=== PATIENT | male | born 1960 | race Caucasian/White ===

== ENCOUNTER 2019-07-30 14:45 | Outpatient (CLI) | payer OTHER, SELFPAY ==
--- NOTE | 2019-07-31 19:21 | WPDPFTINT ---
PFT Interpretation PFT Interpretation: DOS: 07/30/2019 REQUESTING: Dr. Álvaro Shahid REASON FOR TESTING: shortness of breath PULMONARY FUNCTION TESTS Results are reproducible. 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 Spirometry: FEV1 is 81%, normal. FVC mildly decreased 79%. Normal FEV1%. Mild decrease in AMH09-80% at 60% predicted with 20% increase after bronchodilator. Lung volumes: Mild decrease in TLC 79% consistent with mild restriction. Very low ERV 7% predicted may be consistent with obesity. Normal RV/TLC. Airway resistance is 181%, increased. Diffusion: DLCO is 77%, mildly decreased. Flow volume loop: Mild scooping of the expiratory limb. IMPRESSION: Mild restrictive process, mild small airways pattern with good response to bronchodilator, mild increase in airway resistance, and mild decrease in diffusion. The decrease in diffusion may be due to smoking. The BMI may contribute to mild restriction. Mily Rivers MD
== END 2019-07-30 14:46 | disposition home or self-care (01) ==
PROVIDERS: PCP Emergency Medicine; Visit Provider Internal Medicine Critical Care Medicine
DX: J44.9 Chronic obstructive pulmonary disease, unspecified (principal); R94.2 Abnormal results of pulmonary function studies
CPT/HCPCS: 94060; 94726; 94729

== ENCOUNTER 2019-08-22 14:47 | Outpatient (CLI) | payer OTHER, SELFPAY ==
--- NOTE | ~2019-08-22 | CT_ITS ---
EXAMINATION: CT lung screening DATE: 08/22/2019 15:12 INDICATION: Personal history of nicotine dependence, prior smoker with 45 pack year history TECHNIQUE: Computed tomography (CT) of the chest was performed without intravenous contrast. The dose -length product (DLP) was 356.33 mGy-cm. Automated exposure control and iterative reconstruction tech [employer] were employed. COMPARISON: None FINDINGS: There is mild emphysema. Calcified pulmonary nodules and calcified right hilar and mediasti nal lymph nodes are consistent with old granulomatous disease. No suspicious pulmonary nodules are id entified. There is a focally dilated bronchus in the left lower lobe which may reflect prior infectio n. No pleural effusion or pneumothorax is identified. No pathologically enlarged thoracic lymph nodes are identified. The heart size is normal. There is a small sliding hiatal hernia. There is moderate thoracic spondylosis. IMPRESSION: 1. Lung-RADS category 1: Negative. Continue annual screening with noncontrast low-dose chest CT in 12 months. Reviewed, dictated and finalized at location A. IMPRESSION: 1. Lung-RADS category 1: Negative. Continue annual screening with noncontrast l ow-dose chest CT in 12 months.
== END 2019-08-22 14:48 | disposition home or self-care (01) ==
PROVIDERS: PCP Emergency Medicine; Visit Provider Nurse Practitioner Family
DX: Z12.2 Encounter for screening for malignant neoplasm of respiratory organs (principal); Z87.891 Personal history of nicotine dependence
CPT/HCPCS: G0297

== ENCOUNTER 2020-12-19 16:05 | Outpatient (CLI) | payer OTHER, SELFPAY ==
--- NOTE | ~2020-12-19 | CT_ITS ---
EXAMINATION: CT lung screening DATE: 12/19/2020 16:19 INDICATION: Personal history of nicotine dependence, current smoker with 40 pack year history TECHNIQUE: Computed tomography (CT) of the chest was performed without intravenous contrast. The dose -length product (DLP) was 351.97 mGy-cm. Automated exposure control and iterative reconstruction tech [employer] were employed. COMPARISON: 08/22/2019 FINDINGS: There is mild emphysema. A chronic focally dilated bronchus is noted in the left lower lobe , likely prior infection. There is an adjacent 5 mm nodule. Calcified pulmonary nodules and calcified right hilar and mediastinal lymph nodes are consistent with old granulomatous disease. There is no p leural effusion or pneumothorax. The heart size is normal. There are no pathologically enlarged thora cic lymph nodes. A small sliding hiatal hernia is noted. There is moderate thoracic spondylosis. IMPRESSION: 1. Lung-RADS category 3: Probably benign. Followup with noncontrast low-dose chest CT in 6 months is recommended. Reviewed, dictated and finalized at location A. IMPRESSION: 1. Lung-RADS category 3: Probably benign. Followup with noncontrast low-dose est CT in 6 months is recommended.
== END 2020-12-19 16:06 | disposition home or self-care (01) ==
LOC: ANHIMG 16:06
PROVIDERS: PCP Emergency Medicine; Visit Provider Nurse Practitioner Family
DX: Z12.2 Encounter for screening for malignant neoplasm of respiratory organs (principal); Z87.891 Personal history of nicotine dependence; R91.8 Other nonspecific abnormal finding of lung field
CPT/HCPCS: 71271

== ENCOUNTER 2021-07-02 10:04 | Outpatient (CLI) | payer OTHER, SELFPAY ==
--- NOTE | ~2021-07-02 | CT_ITS ---
EXAMINATION: CT diagnostic chest wo con DATE: 07/02/2021 10:31 INDICATION: Pulmonary nodule TECHNIQUE: Computed tomography (CT) of the chest was performed without intravenous contrast. The dose -length product (DLP) was 655.39 mGy-cm. Automated exposure control and iterative reconstruction tech [employer] were employed. COMPARISON: 12/19/2020 FINDINGS: Again seen is a chronic focally dilated bronchus of the left lower lobe. The adjacent nodul e described on the comparison CT has resolved, consistent with infection/inflammation. No new pulmona ry nodules are identified. The lungs are free of acute opacities. There is no pleural effusion or pne umothorax. Calcified pulmonary nodules and calcified right hilar and mediastinal lymph nodes are cons istent with old granulomatous disease. No pathologically enlarged thoracic lymph nodes are identified . The heart size is normal. There is a small sliding hiatal hernia. Calcified coronary artery atheros clerosis is noted. There is a 6 mm cyst of the liver. There is moderate thoracic spondylosis. IMPRESSION: 1. Resolved left lower lobe nodule, likely infectious or inflammatory. Routine annual low-dose lung c ancer screening is recommended. Reviewed, dictated and finalized at location B. IMPRESSION: 1. Resolved left lower lobe nodule, likely infectious or inflammatory. Routine annual low-dose lung cancer screening is recommended.
== END 2021-07-02 10:05 | disposition home or self-care (01) ==
PROVIDERS: PCP Emergency Medicine; Visit Provider Nurse Practitioner Family
DX: R91.1 Solitary pulmonary nodule (principal)
CPT/HCPCS: 71250

== ENCOUNTER 2022-07-05 11:21 | Outpatient (CLI) | payer OTHER, SELFPAY ==
--- NOTE | ~2022-07-05 | CT_ITS ---
EXAMINATION: CT lung screening DATE: 07/05/2022 11:51 INDICATION: Lung cancer screening TECHNIQUE: Computed tomography (CT) of the chest was performed without intravenous contrast. The dose -length product was 365.15 mGy-cm. 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 COMPARISON: CT dated 07/02/2021 FINDINGS: There are scattered calcified granulomas in the lungs. There are calcified mediastinal lymp h nodes, consistent with chronic granulomatous disease. There are calcified granulomas in the spleen. There is a small subcentimeter hypodensity of the right hepatic lobe, most likely benign cyst or hem angioma. There is a right renal cyst partially visualized. No thoracic lymphadenopathy. No significan t pleural or pericardial effusion. Small hiatal hernia. No suspicious pulmonary nodules or masses. No pneumothorax. Moderate thoracic spondylosis. IMPRESSION: 1. Lung-RADS category 1: Negative. Continue annual screening with noncontrast low-dose chest CT in 12 months. Reviewed, dictated and finalized at location B. IMPRESSION: 1. Lung-RADS category 1: Negative. Continue annual screening with noncontrast l ow-dose chest CT in 12 months.
== END 2022-07-05 11:22 | disposition home or self-care (01) ==
PROVIDERS: PCP Emergency Medicine; Visit Provider Nurse Practitioner Family
DX: Z12.2 Encounter for screening for malignant neoplasm of respiratory organs (principal); F17.210 Nicotine dependence, cigarettes, uncomplicated
CPT/HCPCS: 71271